=== PATIENT | male | born 1965 | race Caucasian/White ===

== ENCOUNTER → 2017-03-07 | Outpatient (REF) | payer OTHER ==
[~2017-03-07] MED LIST: ALEV220C2 PO; IBUP200C PO; IBUP200T45 PO; PRIL20CA9 PO; PROZ20CA11 PO
[2017-03-07 12:41] LABS: MEAN CORPUSCULAR HEMOGLOBIN 24.5 pg (27.0-33.0); MEAN CORPUSCULAR HGB CONC 31.2 g/dl (32.0-36.5); MEAN CORPUSCULAR VOLUME 78.6 fl (80.0-96.0); RED CELL DISTRIBUTION WIDTH 15.1 % (11.5-14.5); WHITE BLOOD COUNT 7.2 K/mm3 (4.0-10.0)
[2017-03-07 13:09] LABS: ALBUMIN 3.7 GM/DL (3.2-5.2); ALBUMIN/GLOBULIN RATIO 1.16 (1.00-1.93); ALKALINE PHOSPHATASE 66 U/L (45-117); ALT/SGPT 60 U/L (12-78); ANION GAP 7 MEQ/L (8-16); AST/SGOT 30 U/L (15-37); BILIRUBIN,TOTAL 0.4 MG/DL (0.2-1.0); BLOOD UREA NITROGEN 13 MG/DL (7-18); CALCIUM LEVEL 8.6 MG/DL (8.5-10.1); CARBON DIOXIDE LEVEL 28 MEQ/L (21-32); CHLORIDE LEVEL 105 MEQ/L (98-107); CHOLESTEROL LEVEL 236 MG/DL (<200); CREATININE FOR GFR 1.08 MG/DL (0.70-1.30); GLOMERULAR FILTRATION RATE > 60.0 (>56); GLUCOSE, FASTING 91 MG/DL (70-105); POTASSIUM SERUM 4.3 MEQ/L (3.5-5.1); SODIUM LEVEL 140 MEQ/L (136-145); TOTAL PROTEIN 6.9 GM/DL (6.4-8.2); TRIGLYCERIDES LEVEL 258 MG/DL (<150)
== END ==
LOC: M SFHCADAM 07:53
PROVIDERS: ATTEND Physician Assistant
DX: K21.9 Gastro-esophageal reflux disease without esophagitis (principal); E78.1 Pure hyperglyceridemia; E55.9 Vitamin D deficiency, unspecified

== ENCOUNTER → 2017-03-20 | Outpatient (REF) | payer OTHER ==
[2017-03-20 15:04] LABS: FREE T4 0.8 NG/DL (0.76-1.46)
== END ==
LOC: M SFHCADAM 08:50
PROVIDERS: ATTEND Physician Assistant
DX: R68.82 Decreased libido (principal)

== ENCOUNTER → 2018-03-20 | Outpatient (REF) | payer OTHER ==
[2018-03-20 14:07] LABS: ALBUMIN/GLOBULIN RATIO 1.18 (1.00-1.93); ALKALINE PHOSPHATASE 68 U/L (45-117); ALT/SGPT 88 U/L (12-78); ANION GAP 8 MEQ/L (8-16); AST/SGOT 42 U/L (7-37); BILIRUBIN,TOTAL 0.3 MG/DL (0.2-1.0); BLOOD UREA NITROGEN 14 MG/DL (7-18); CALCIUM LEVEL 9.3 MG/DL (8.5-10.1); CARBON DIOXIDE LEVEL 27 MEQ/L (21-32); CHLORIDE LEVEL 105 MEQ/L (98-107); CHOLESTEROL LEVEL 217 MG/DL (<200); CHOLESTEROL RISK RATIO 4.822 (<5); CREATININE FOR GFR 1.27 MG/DL (0.70-1.30); GLOMERULAR FILTRATION RATE > 60.0 (>56); GLUCOSE, FASTING 97 MG/DL (70-100); HDL CHOLESTEROL 45 MG/DL (>40); LDL CHOLESTEROL 127.2 MG/DL (<100); NON-HDL-C 172 MG/DL; POTASSIUM SERUM 4.5 MEQ/L (3.5-5.1); SODIUM LEVEL 140 MEQ/L (136-145); TOTAL PROTEIN 7.4 GM/DL (6.4-8.2); TRIGLYCERIDES LEVEL 224 MG/DL (<150)
== END ==
LOC: M SFHCADAM 07:57
DX: E78.2 Mixed hyperlipidemia (principal)

== ENCOUNTER → 2018-08-07 | Outpatient (REF) | payer OTHER ==
[2018-08-07 13:28] LABS: ALBUMIN 4.1 GM/DL (3.2-5.2); ALBUMIN/GLOBULIN RATIO 1.21 (1.00-1.93); ALKALINE PHOSPHATASE 65 U/L (45-117); ALT/SGPT 65 U/L (12-78); ANION GAP 8 MEQ/L (8-16); AST/SGOT 38 U/L (7-37); BILIRUBIN,TOTAL 0.6 MG/DL (0.2-1.0); BLOOD UREA NITROGEN 15 MG/DL (7-18); CARBON DIOXIDE LEVEL 27 MEQ/L (21-32); CHLORIDE LEVEL 104 MEQ/L (98-107); CHOLESTEROL LEVEL 229 MG/DL (<200); CHOLESTEROL RISK RATIO 5.325 (<5); CREATININE FOR GFR 1.06 MG/DL (0.70-1.30); GLOMERULAR FILTRATION RATE > 60.0 (>56); GLUCOSE, FASTING 91 MG/DL (70-100); HDL CHOLESTEROL 43 MG/DL (>40); LDL CHOLESTEROL 144 MG/DL (<100); NON-HDL-C 186 MG/DL; POTASSIUM SERUM 5.4 MEQ/L (3.5-5.1); SODIUM LEVEL 139 MEQ/L (136-145); TOTAL PROTEIN 7.5 GM/DL (6.4-8.2); TRIGLYCERIDES LEVEL 210 MG/DL (<150)
== END ==
LOC: M LABDRWAD 12:37
DX: E78.2 Mixed hyperlipidemia (principal)

== ENCOUNTER → 2019-10-10 | Outpatient (REF) | payer OTHER ==
[~2019-10-10] MED LIST changes: -IBUP200C PO; +IBUP200C25 PO
[2019-10-10 19:47] LABS: HEMATOCRIT 53.5 % (42.0-52.0); HEMOGLOBIN 15.6 g/dl (13.5-17.5); MEAN CORPUSCULAR HEMOGLOBIN 23.9 pg (27.0-33.0); MEAN CORPUSCULAR HGB CONC 29.2 g/dl (32.0-36.5); MEAN CORPUSCULAR VOLUME 82.1 fl (80.0-96.0); PLATELET COUNT, AUTOMATED 287 10^3/uL (150-450); RED BLOOD COUNT 6.52 10^6/uL (4.30-6.10); WHITE BLOOD COUNT 10.4 10^3/uL (4.0-10.0)
[2019-10-10 20:08] LABS: ALBUMIN 3.8 GM/DL (3.2-5.2); ALT/SGPT 53 U/L (12-78); BILIRUBIN,TOTAL 0.7 MG/DL (0.2-1.0); BLOOD UREA NITROGEN 11 MG/DL (7-18); CALCIUM LEVEL 8.9 MG/DL (8.5-10.1); CARBON DIOXIDE LEVEL 29 MEQ/L (21-32); CHLORIDE LEVEL 104 MEQ/L (98-107); CHOLESTEROL LEVEL 237 MG/DL (<200); CREATININE FOR GFR 1.13 MG/DL (0.70-1.30); GLOMERULAR FILTRATION RATE > 60.0 (>56); GLUCOSE, FASTING 82 MG/DL (70-100); HDL CHOLESTEROL 41 MG/DL (>40); LDL CHOLESTEROL 145 MG/DL (<100); NON-HDL-C 196 MG/DL; POTASSIUM SERUM 4.4 MEQ/L (3.5-5.1); SODIUM LEVEL 140 MEQ/L (136-145); TOTAL PROTEIN 7.5 GM/DL (6.4-8.2); TRIGLYCERIDES LEVEL 256 MG/DL (<150)
== END ==
LOC: M SFHCADAM 16:07
PROVIDERS: ATTEND Physician Assistant
DX: R03.0 Elevated blood-pressure reading, without diagnosis of hypertension (principal); E78.2 Mixed hyperlipidemia; Z12.5 Encounter for screening for malignant neoplasm of prostate; K21.9 Gastro-esophageal reflux disease without esophagitis
CPT/HCPCS: 80053; 80061; 85027; G0103

== ENCOUNTER → 2020-12-08 | Outpatient (REF) | payer OTHER ==
[2020-12-08 13:02] LABS: BASO % 0.4 % (0.0-1.0); EOS # 0.2 10^3/uL (0.0-0.5); EOS % 1.6 % (0.0-3.0); HEMATOCRIT 56.9 % (42.0-52.0); HEMOGLOBIN 17.4 g/dl (13.5-17.5); LYMPH # 3.1 10^3/uL (1.5-5.0); LYMPH % 27.9 % (24.0-44.0); MEAN CORPUSCULAR HEMOGLOBIN 25.8 pg (27.0-33.0); MEAN CORPUSCULAR HGB CONC 30.6 g/dl (32.0-36.5); MEAN CORPUSCULAR VOLUME 84.4 fl (80.0-96.0); MONO % 8.7 % (2.0-8.0); NEUTROPHILS # 6.7 10^3/uL (1.5-8.5); PLATELET COUNT, AUTOMATED 263 10^3/uL (150-450); RED BLOOD COUNT 6.74 10^6/uL (4.30-6.10)
[2020-12-08 13:39] LABS: ALBUMIN 4.2 GM/DL (3.2-5.2); ALT/SGPT 87 U/L (12-78); BILIRUBIN,TOTAL 0.7 MG/DL (0.2-1.0); BLOOD UREA NITROGEN 15 MG/DL (7-18); CALCIUM LEVEL 9.8 MG/DL (8.5-10.1); CARBON DIOXIDE LEVEL 30 MEQ/L (21-32); CHLORIDE LEVEL 106 MEQ/L (98-107); CHOLESTEROL LEVEL 285 MG/DL (<200); CHOLESTEROL RISK RATIO 6.063 (<5); CREATININE FOR GFR 1.22 MG/DL (0.70-1.30); FREE T4 0.81 NG/DL (0.76-1.46); GLOMERULAR FILTRATION RATE > 60.0 (>56); GLUCOSE, FASTING 116 MG/DL (70-100); HDL CHOLESTEROL 47 MG/DL (>40); LDL CHOLESTEROL 196 MG/DL (<100); NON-HDL-C 238 MG/DL; POTASSIUM SERUM 4.9 MEQ/L (3.5-5.1); SODIUM LEVEL 140 MEQ/L (136-145); THYROID STIMULATING HORMONE 0.893 uIU/ML (0.358-3.740); TOTAL PROTEIN 7.6 GM/DL (6.4-8.2); TRIGLYCERIDES LEVEL 210 MG/DL (<150)
[2020-12-09 23:07] LABS: ANA (HEP2) Positive (.)
== END ==
LOC: M SFHCADAM 08:10
PROVIDERS: ATTEND Physician Assistant
DX: L40.9 Psoriasis, unspecified (principal); E78.1 Pure hyperglyceridemia; M19.90 Unspecified osteoarthritis, unspecified site; K21.9 Gastro-esophageal reflux disease without esophagitis; H04.129 Dry eye syndrome of unspecified lacrimal gland; Z12.5 Encounter for screening for malignant neoplasm of prostate

== ENCOUNTER → 2021-01-07 | Outpatient (REF) | payer OTHER | LOC: M LABDRWAD 16:12 | PROVIDERS: ATTEND Nurse Practitioner Family | DX: R21 Rash and other nonspecific skin eruption (principal) ==

== ENCOUNTER → 2021-12-22 | Outpatient (REF) | payer OTHER ==
[~2021-12-22] MED LIST changes: -IBUP200T45 PO; +IBUP200T46 PO
[2021-12-22 12:20] LABS: ALBUMIN 4.1 GM/DL (3.2-5.2); ALT/SGPT 47 U/L (12-78); BILIRUBIN,TOTAL 0.5 MG/DL (0.2-1.0); BLOOD UREA NITROGEN 13 MG/DL (7-18); CALCIUM LEVEL 9.2 MG/DL (8.5-10.1); CARBON DIOXIDE LEVEL 30 MEQ/L (21-32); CHLORIDE LEVEL 105 MEQ/L (98-107); CHOLESTEROL LEVEL 153 MG/DL (<200); CHOLESTEROL RISK RATIO 3.326 (<5); CREATININE FOR GFR 1.08 MG/DL (0.70-1.30); GLOMERULAR FILTRATION RATE > 60.0 (>56); GLUCOSE, FASTING 107 MG/DL (70-100); HDL CHOLESTEROL 46 MG/DL (>40); LDL CHOLESTEROL 82 MG/DL (<100); NON-HDL-C 107 MG/DL; POTASSIUM SERUM 4.2 MEQ/L (3.5-5.1); RHEUMATOID FACTOR QUANT < 10.0 IU/ML (<15.0); SODIUM LEVEL 139 MEQ/L (136-145); TRIGLYCERIDES LEVEL 124 MG/DL (<150)
== END ==
LOC: M SFHCADAM 08:10
PROVIDERS: ATTEND Physician Assistant
DX: E78.2 Mixed hyperlipidemia (principal); R73.01 Impaired fasting glucose; R97.20 Elevated prostate specific antigen [PSA]; R76.8 Other specified abnormal immunological findings in serum; H04.129 Dry eye syndrome of unspecified lacrimal gland
CPT/HCPCS: 80053; 80061; 83036; 83520; 86038; 86431; G0103

== ENCOUNTER → 2024-02-05 | Outpatient (REF) | payer BC ==
[2024-02-05 14:07] LABS: BASO # 0.1 10^3/uL (0.0-0.2); BASO % 0.5 % (0.0-1.0); EOS # 0.2 10^3/uL (0.0-0.5); EOS % 1.5 % (0.0-3.0); HEMATOCRIT 54.8 % (42.0-52.0); HEMOGLOBIN 16.9 g/dl (13.5-17.5); LYMPH # 3.2 10^3/uL (1.5-5.0); LYMPH % 31.6 % (24.0-44.0); MEAN CORPUSCULAR HEMOGLOBIN 26.9 pg (27.0-33.0); MEAN CORPUSCULAR HGB CONC 30.8 g/dl (32.0-36.5); MEAN CORPUSCULAR VOLUME 87.3 fl (80.0-96.0); MONO # 0.8 10^3/uL (0.0-0.8); MONO % 8.3 % (2.0-8.0); NEUTROPHILS # 5.8 10^3/uL (1.5-8.5); NEUTROPHILS % 57.7 % (36.0-66.0); PLATELET COUNT, AUTOMATED 267 10^3/uL (150-450); RED BLOOD COUNT 6.28 10^6/uL (4.30-6.10); WHITE BLOOD COUNT 10.1 10^3/uL (4.0-10.0)
[2024-02-05 14:18] LABS: ALBUMIN 3.9 G/DL (3.2-5.2); ALKALINE PHOSPHATASE 70 U/L (46-116); ALT/SGPT 32 U/L (7.0-40); AST/SGOT 23 U/L (<34); BILIRUBIN,TOTAL 0.5 MG/DL (0.3-1.2); BLOOD UREA NITROGEN 15 MG/DL (9-23); CALCIUM LEVEL 9.7 MG/DL (8.3-10.6); CARBON DIOXIDE LEVEL 32 MMOL/L (20-31); CHLORIDE LEVEL 103 MMOL/L (98-107); CHOLESTEROL LEVEL 176 MG/DL (<200); CHOLESTEROL RISK RATIO 3.97 (<5); CREATININE FOR GFR 1.03 MG/DL (0.70-1.30); GLOMERULAR FILTRATION RATE > 60.0 (>49); GLUCOSE, FASTING 113 MG/DL (74-106); HDL CHOLESTEROL 44.3 MG/DL (>40); LDL CHOLESTEROL 95.3 MG/DL (<100); NON-HDL-C 131.7 MG/DL; POTASSIUM SERUM 4.2 MMOL/L (3.5-5.1); SODIUM LEVEL 139 MMOL/L (136-145); TOTAL PROTEIN 6.8 G/DL (5.7-8.2); TRIGLYCERIDES LEVEL 182 MG/DL (<150)
[2024-02-05 14:19] LABS: THYROID STIMULATING HORMONE 1.301 uIU/ML (0.55-4.78); TOTAL 25(OH) VITAMIN D 46.8 NG/ML (20.0-100.0)
[2024-02-05 14:20] LABS: FREE T4 0.89 NG/DL (0.89-1.76)
[2024-02-05 14:22] LABS: HEMOGLOBIN A1c 5.7 % (4.0-6.0)
== END ==
LOC: M SFHCADAM 08:02
PROVIDERS: ATTEND Physician Assistant
DX: K21.9 Gastro-esophageal reflux disease without esophagitis (principal); E78.2 Mixed hyperlipidemia; Z12.5 Encounter for screening for malignant neoplasm of prostate; E55.9 Vitamin D deficiency, unspecified; R73.01 Impaired fasting glucose

== ENCOUNTER → 2024-02-07 | Outpatient (REF) | payer BC | LOC: M SFHCADAM 15:13 | PROVIDERS: ATTEND Physician Assistant | DX: Z12.5 Encounter for screening for malignant neoplasm of prostate (principal) ==

== ENCOUNTER → 2024-02-07 | Outpatient (CLI) | payer BC | LOC: M ADAMS 15:18 | PROVIDERS: ATTEND Physician Assistant | DX: R05.3 Chronic cough (principal); Z77.090 Contact with and (suspected) exposure to asbestos ==

== ENCOUNTER 2024-09-03 09:48 | Day surgery (SDC) | payer BC ==
[~2024-09-03] VITALS: Ht 180.3 cm; Wt 83.9 kg
[~2024-09-03 09:48] MED LIST changes: +ATOR1TAB21 PO; +FENO48TA8 PO; +FLUO40CA PO; +OMEG10002 PO; +OMEP-173 PO; +THERTAB52 PO; +VITAD400CA PO; +xyzol PO
[2024-09-03] MEDS ORDERED: LIDOCAINE 2% 100MG/5ML SDV (FOR ANES.) As Ordered ONE (11:52)
[2024-09-03] MEDS ORDERED: propofoL 200 MG/20 ML VIAL As Ordered ONE (11:55)
[2024-09-03] MEDS ORDERED: ePHEDrine SULFATE 25 MG/5 ML(5MG/ML) SYRINGE As Ordered ONE (12:17)
[2024-09-03 12:23] VITALS: TEMP 96.8
[2024-09-03 12:52] VITALS: BP 108/68; O2SAT 97
== END 2024-09-03 12:53 | disposition home or self-care (01) ==
LOC: M OPP 09:48
PROVIDERS: ATTEND Internal Medicine Gastroenterology
DX: Z12.11 Encounter for screening for malignant neoplasm of colon (principal); Z86.0100 Personal history of colon polyps, unspecified; K63.5 Polyp of colon; K57.30 Diverticulosis of large intestine without perforation or abscess without bleeding; K64.8 Other hemorrhoids; K44.9 Diaphragmatic hernia without obstruction or gangrene; R12 Heartburn; E78.5 Hyperlipidemia, unspecified; K21.9 Gastro-esophageal reflux disease without esophagitis; M19.90 Unspecified osteoarthritis, unspecified site; F32.A Depression, unspecified; F41.9 Anxiety disorder, unspecified; F12.20 Cannabis dependence, uncomplicated; Z88.8 Allergy status to other drugs, medicaments and biological substances; Z79.899 Other long term (current) drug therapy

== ENCOUNTER → 2024-12-16 | Outpatient (REF) | payer BC, OTHER | LOC: M LAB REF 16:55 | PROVIDERS: ATTEND Student in an Organized Health Care Education/Training Program | DX: R30.0 Dysuria (principal) ==

== ENCOUNTER → 2025-02-11 | Outpatient (REF) | payer BC ==
[2025-02-11 17:29] LABS: HEMATOCRIT 53.7 % (42.0-52.0); HEMOGLOBIN 16.6 g/dl (13.5-17.5); MEAN CORPUSCULAR HEMOGLOBIN 26.6 pg (27.0-33.0); MEAN CORPUSCULAR HGB CONC 30.9 g/dl (32.0-36.5); MEAN CORPUSCULAR VOLUME 86.2 fl (80.0-96.0); PLATELET COUNT, AUTOMATED 307 10^3/uL (150-450); RED BLOOD COUNT 6.23 10^6/uL (4.30-6.10)
[2025-02-11 17:55] LABS: ALBUMIN 4.1 G/DL (3.2-5.2); ALKALINE PHOSPHATASE 71 U/L (40-129); ALT/SGPT 35 U/L (7.0-40); AST/SGOT 20 U/L (<34); BILIRUBIN,TOTAL 0.6 MG/DL (0.3-1.2); BLOOD UREA NITROGEN 10 MG/DL (9-23); CALCIUM LEVEL 9.2 MG/DL (8.3-10.6); CARBON DIOXIDE LEVEL 29 MMOL/L (20-31); CHLORIDE LEVEL 103 MMOL/L (98-107); CHOLESTEROL LEVEL 169 MG/DL (<200); CHOLESTEROL RISK RATIO 3.97 (<5); CREATININE FOR GFR 0.93 MG/DL (0.70-1.30); GLOMERULAR FILTRATION RATE > 90.0 (>49); GLUCOSE, FASTING 93 MG/DL (74-106); HDL CHOLESTEROL 42.5 MG/DL (>40); LDL CHOLESTEROL 98.1 MG/DL (<100); NON-HDL-C 126.5 MG/DL; POTASSIUM SERUM 4.8 MMOL/L (3.5-5.1); PSA SCREENING 2.44 NG/ML (< 4.00); SODIUM LEVEL 141 MMOL/L (136-145); TOTAL PROTEIN 7.2 G/DL (5.7-8.2); TRIGLYCERIDES LEVEL 142 MG/DL (<150)
[2025-02-11 18:38] LABS: HEMOGLOBIN A1c 5.6 % (4.0-6.0)
== END ==
LOC: M SFHCADAM 11:37
PROVIDERS: ATTEND Physician Assistant
DX: Z00.00 Encounter for general adult medical examination without abnormal findings (principal); E78.00 Pure hypercholesterolemia, unspecified; R73.03 Prediabetes; K21.9 Gastro-esophageal reflux disease without esophagitis; F34.1 Dysthymic disorder; F41.9 Anxiety disorder, unspecified; E78.1 Pure hyperglyceridemia; N41.0 Acute prostatitis; Z12.5 Encounter for screening for malignant neoplasm of prostate
CPT/HCPCS: 80053; 80061; 83036; 85027; G0103

== ENCOUNTER 2025-06-26 12:28 | Emergency (ER) | payer BC ==
[~2025-06-26] VITALS: Ht 180.3 cm; Wt 82.3 kg
[~2025-06-26 12:28] MED LIST changes: -PROZ20CA11 PO; +PROZ20CA12 PO
[2025-06-26] MEDS: PANTOPRAZOLE 40MG VIAL IV ONE (13:29)
[2025-06-26] MEDS: ONDANSETRON 4MG 2ML VIAL IV ONE (13:29)
[2025-06-26 13:36] LABS: BASO # 0.0 10^3/uL (0.0-0.2); BASO % 0.2 % (0.0-1.0); EOS # 0.0 10^3/uL (0.0-0.5); EOS % 0.2 % (0.0-3.0); LYMPH # 1.8 10^3/uL (1.5-5.0); LYMPH % 10.6 % (24.0-44.0); MONO # 1.0 10^3/uL (0.0-0.8); MONO % 5.9 % (2.0-8.0); NEUTROPHILS # 13.9 10^3/uL (1.5-8.5); NEUTROPHILS % 82.6 % (36.0-66.0); PLATELET COUNT, AUTOMATED 349 10^3/uL (150-450)
[2025-06-26 14:04] LABS: CK-MB VALUE MASS 1.2 NG/ML (<3.6)
[2025-06-26 14:05] LABS: ALT/SGPT 37 U/L (7.0-40); AST/SGOT 31 U/L (<34); CALCIUM LEVEL 9.6 MG/DL (8.3-10.6); CARBON DIOXIDE LEVEL 20 MMOL/L (20-31); CHLORIDE LEVEL 107 MMOL/L (98-107); CREATININE FOR GFR 0.89 MG/DL (0.70-1.30); GLOMERULAR FILTRATION RATE > 90.0 (>49); POTASSIUM SERUM 3.8 MMOL/L (3.5-5.1); SODIUM LEVEL 138 MMOL/L (136-145)
[2025-06-26 14:07] LABS: CPK CREATINE PHOSPHOKINASE 126 U/L (46-171); MB/CK RELATIVE INDEX 0.95 (< OR =4)
[2025-06-26] MEDS ORDERED: ISOVUE-370 76% 100 ML VIAL As Ordered ONE (15:01)
[2025-06-26 16:00] VITALS: BP 161/95; TEMP 99.2; O2SAT 96
[2025-06-26] MEDS ORDERED: ONDA-282 PO (16:00)
== END 2025-06-26 16:09 | disposition home or self-care (01) ==
LOC: M ED 12:28
DX: R11.2 Nausea with vomiting, unspecified (principal); K76.0 Fatty (change of) liver, not elsewhere classified; F12.10 Cannabis abuse, uncomplicated; F10.10 Alcohol abuse, uncomplicated; Z88.8 Allergy status to other drugs, medicaments and biological substances; Z79.02 Long term (current) use of antithrombotics/antiplatelets; Z79.83 Long term (current) use of bisphosphonates; Z79.899 Other long term (current) drug therapy
CPT/HCPCS: 74177; 80048; 80076; 82550; 82553; 83690; 84484; 85025; 93005; 93041; 96374; 99285; J2405; J2470; Q9967

== ENCOUNTER → 2025-06-30 | Outpatient (CLI) | payer BC ==
[~2025-06-30] MED LIST changes: +ONDA-282 PO
[2025-06-30 18:20] LABS: BASO # 0.0 10^3/uL (0.0-0.2); BASO % 0.3 % (0.0-1.0); EOS # 0.1 10^3/uL (0.0-0.5); EOS % 0.6 % (0.0-3.0); LYMPH # 3.4 10^3/uL (1.5-5.0); LYMPH % 25.9 % (24.0-44.0); MONO # 1.5 10^3/uL (0.0-0.8); MONO % 11.2 % (2.0-8.0); NEUTROPHILS # 8.0 10^3/uL (1.5-8.5); NEUTROPHILS % 61.7 % (36.0-66.0); PLATELET COUNT, AUTOMATED 299 10^3/uL (150-450)
[2025-06-30 18:31] LABS: ERYTHROCYTE SEDIMENTATION RATE 17 mm/hr (0-20)
[2025-06-30 18:55] LABS: C REACTIVE PROTEIN QUANTITATIV 0.53 MG/DL (<1.0)
[2025-06-30 18:56] LABS: ALT/SGPT 35.0 U/L (7.0-40); AST/SGOT 21.0 U/L (<34); CALCIUM LEVEL 9.5 MG/DL (8.3-10.6); CARBON DIOXIDE LEVEL 29.0 MMOL/L (20-31); CHLORIDE LEVEL 103.0 MMOL/L (98-107); CREATININE FOR GFR 1.03 MG/DL (0.70-1.30); GLOMERULAR FILTRATION RATE 82.1 (>49); POTASSIUM SERUM 4.1 MMOL/L (3.5-5.1); SODIUM LEVEL 140.0 MMOL/L (136-145)
[2025-07-03 16:27] LABS: ANA PATTERN 2 Nuclear, Homogeneous; ANA TITER 2 1:40 titer (NEGATIVE)
== END ==
LOC: M PLALAB 16:44
PROVIDERS: ATTEND Physician Assistant
DX: R10.11 Right upper quadrant pain (principal); R10.13 Epigastric pain; R11.2 Nausea with vomiting, unspecified; R76.8 Other specified abnormal immunological findings in serum

== ENCOUNTER → 2025-07-01 | Outpatient (CLI) | payer BC | LOC: M RAD 11:24 | PROVIDERS: ATTEND Physician Assistant | DX: R10.11 Right upper quadrant pain (principal); K82.8 Other specified diseases of gallbladder ==

== ENCOUNTER 2025-08-26 07:33 | Day surgery (SDC) | payer BC ==
[~2025-08-26] VITALS: Ht 180.3 cm; Wt 84.1 kg
[~2025-08-26 07:33] MED LIST changes: +LEVOTAB10 PO; +NAPR220C14 PO; +PANT40TA29 PO; +TAMS1CAP17 PO
[2025-08-26] MEDS ORDERED: LR 1,000 ML IV SCH ×2 (07:55→10:25)
[2025-08-26 08:04] LABS: PLATELET COUNT, AUTOMATED 266 10^3/uL (150-450)
[2025-08-26 08:37] LABS: CALCIUM LEVEL 9.3 MG/DL (8.3-10.6); CARBON DIOXIDE LEVEL 29.0 MMOL/L (20-31); CHLORIDE LEVEL 106.0 MMOL/L (98-107); CREATININE FOR GFR 1.03 MG/DL (0.70-1.30); GLOMERULAR FILTRATION RATE 82.1 (>49); POTASSIUM SERUM 4.3 MMOL/L (3.5-5.1); SODIUM LEVEL 143.0 MMOL/L (136-145)
[2025-08-26] MEDS: ceFAZolin SOD 2 GM IV ONCE IV ONE (09:30)
[2025-08-26] MEDS ORDERED: ROCURONIUM BROMIDE 50MG/5ML VIAL As Ordered ONE (09:36)
[2025-08-26] MEDS ORDERED: MIDAZOLAM INJ 2 MG/2 ML VIAL As Ordered ONE (09:36)
[2025-08-26] MEDS ORDERED: LIDOCAINE 2% 100 MG/5 ML SDV (FOR ANES.) As Ordered ONE (09:36)
[2025-08-26] MEDS ORDERED: ONDANSETRON 4MG/2ML VIAL As Ordered ONE (09:36)
[2025-08-26] MEDS ORDERED: dexAMETHasone 4 MG/ML 1 ML VIAL As Ordered ONE (09:36)
[2025-08-26] MEDS ORDERED: SUGAMMADEX SODIUM 200 MG/2 ML VIAL As Ordered ONE (09:36)
[2025-08-26] MEDS ORDERED: ACETAMINOPHEN 1000MG/100ML IV BAG As Ordered ONE (09:37)
[2025-08-26] MEDS ORDERED: KETOROLAC 30 MG/ML 1 ML VIAL As Ordered ONE (09:47)
[2025-08-26] MEDS ORDERED: ESMOLOL 100 MG/10 ML VIAL As Ordered ONE (09:51)
[2025-08-26] MEDS ORDERED: HYDROMORPHONE HCL 0.5 MG/0.5 ML SYRINGE IV PRN (10:25)
[2025-08-26] MEDS ORDERED: ONDANSETRON 4MG/2ML VIAL IV PRN (10:25)
[2025-08-26 11:05] VITALS: BP 124/75; TEMP 97.2; O2SAT 98
== END 2025-08-26 12:07 | disposition home or self-care (01) ==
LOC: M SDC 07:33
PROVIDERS: ATTEND Surgery
DX: K81.1 Chronic cholecystitis (principal); E78.00 Pure hypercholesterolemia, unspecified; K21.9 Gastro-esophageal reflux disease without esophagitis; Z79.899 Other long term (current) drug therapy; Z88.8 Allergy status to other drugs, medicaments and biological substances; Z72.0 Tobacco use
CPT/HCPCS: 36415; 47562; 80048; 85027; 88304; J0131; J0665; J0688; J1100; J1805; J1885; J2250; J2405; J3010